=== PATIENT | male | born 1960 | race Caucasian/White ===

== ENCOUNTER 2025-06-23 13:32 | Inpatient (IN) | payer MEDICARE, SELFPAY ==
[2025-06-23] VITALS (29 sets, daily range): BP systolic 118–190; BP diastolic 48–99; PULSE 89–130; RESP 17–33; TEMP 36.7–38.4; O2SAT 93–98; BMI 31.3; BMI 31.2
--- NOTE | 2025-06-23 14:07 | EKG12_ITS ---
Test Reason : CP/SOB Blood Pressure : */* mmHG Vent. Rate : 129 BPM Atrial Rate : 129 BPM P-R Int : 128 ms QRS Dur : 126 ms QT Int : 330 ms P-R-T Axes : 39 118 8 degrees QTcB Int : 483 ms Sinus tachycardia with Premature atrial complexes Possible Left atrial enlargement Right bundle branch block Left posterior fascicular block Bifascicular block Possible Inferior infarct , age undetermined Abnormal ECG Confirmed by MALI ESQUEDA, AISHWARYA ([id number]), rewrite editor GAGE GUILLEN ([id number]) on 06/26/2025 9:10:28 AM Referred By: ES/TB Confirmed By: AISHWARYA SAMSON MD
--- NOTE | 2025-06-23 14:07 | CT_ITS ---
PROCEDURE: CTA CHEST W/WO CONTRAST 06/23/2025 REASON FOR EXAM: DYSPNEA TECHNIQUE: Procedure Code: [id number] Modality: CT Procedure: CTA CHEST W/WO CONTRAST Multiplanar Sagittal and Coronal images were obtained. 3D post processing was performed CONTRAST: Isovue 370 VOLUME: 100 mL One or more dose reduction techniques were used (e.g., Automated exposure control, adjustment of the mA and/or kV according to patient size, use of iterative reconstruction technique). RADIATION DOSE SUMMARY: CTDlvol: 25 mGy DLP: 458 mGycm COMPARISON: None # of known CTs in the past 12 months: 0 # of known Cardiac Nuclear Medicine Studies in the past 12 months: 0 FINDINGS: Thoracic Aorta: No aneurysm, dissection or rupture. Heart: Heart is normal size. No pericardial effusion. Coronary artery atherosclerosis. Pulmonary Vessels: Timing and quality of the contrast bolus is diagnostic. No evidence of acute or chronic pulmonary embolus in the central, main, interlobar and proximal segmental pulmonary arteries. The distal segmental and subsegmental vessels are limited in lower lobes. Main pulmonary artery is enlarged at 36 mm. Hardware: None. Lymph nodes: None appear enlarged. Lungs and Airways: Images are primarily obtained in expiration. Respiratory motion artifact. No consolidation, mass or large nodule. Pleura: No pleural effusion or pneumothorax. Upper Abdomen: Hypertrophy of the left adrenal gland with a mass at the posterior limb measuring 2.2 x 2.9 cm. Partially imaged right adrenal glands show some dystrophic calcification possibly from prior hemorrhage. Bones: Degenerative changes of the thoracic spine. CT/CTA Chest W/WO Contrast IMPRESSION: 1. Enlargement of the main pulmonary artery. Consider pulmonary arterial hype rtension. No acute or chronic pulmonary embolus is seen. The distal segmental and subsegmental vessels are limited by respirat ory motion artifact. 2. No acute aortic abnormality 3. Coronary artery disease. 4. Enlargement of the adrenal glands with mass involving the left adrenal glan d. Adrenal adenoma is a consideration. On a nonemergent basis consider contrast-enhanced MRI for full characterization. Reading Location: [facility]
--- NOTE | 2025-06-23 14:09 | EDS_ITS ---
HPI History of Present Illness Chief Complaint: Chest Pain Informant: patient Onset/Context/Timing Onset: Today Activity at onset: gradual Timing: Continuous Quality: Positive for Tightness Location: Left Chest Worsened By: Nothing Relieved By: NTG Associated Symptoms: Positive for Dyspnea, Fever, Lightheadedness and Palpitations; Negative for Nausea, Vomiting, Diaphoresis, Cough or Acid Reflux Narrative Narrative: Patient presents with chest pain and shortness of breath that began today. Patient states pain feels more like a tightness. Patient states it is over his left chest. Patient states nothing makes it worse. Patient states he took 1 sublingual nitroglycerin which helped. Patient states EMS gave him 4 baby aspirin. Patient denies any nausea or vomiting. Patient admits to some shortness of breath. Patient admits to a fever. Patient states he feels lightheaded at times. Patient also states he feels like his heart is racing. CVD Risk Factors: Negative for Hypertension, Diabetes, Hypercholesterolemia, Family History 1' </=55 or Smoking PE Risk Factors: Positive for Cancer; Negative for Recent Travel/Surgery, Recent Immobilization, Prior DVT or PE or OCP + Smoking + >/=35 [facility] Medical History (Updated 06/23/25 @ 16:[address] Tomas Franco, DO) Prostate cancer Heart attack HTN (hypertension) COPD (chronic obstructive pulmonary disease) Home Medications ?Medication ?Instructions ?Recorded ?Last Taken ?Type abiraterone 500 mg tablet 1,000 mg PO DAILY 06/23/25 U nknown History amlodipine 10 mg tablet 10 mg PO DAILY 06/23/25 Unkn own History aspirin 81 mg tablet 81 mg PO DAILY 06/23/25 Unkn own History atorvastatin 80 mg tablet (Lipitor) 80 mg PO DAILY 03/12 Unknown History clopidogrel 75 mg tablet (Plavix) 75 mg PO DAILY 06/23 Unknown History empagliflozin 10 mg tablet 10 mg PO DAILY 06/23/25 Unk nown History (Jardiance) lisinopril 20 mg tablet 20 mg PO DAILY 06/23/25 Unkn own History metoprolol succinate 25 mg 25 mg PO DAILY 06/23/25 Unk nown History tablet,extended release 24 hr nitroglycerin 0.4 mg sublingual 0.4 mg sublingual Q5M PRN chest 06/23/25 Unknown History tablet (Nitrostat) pain oxybutynin chloride 5 mg 5 mg PO DAILY 06/23/25 Unkno wn History tablet,extended release 24 hr prednisone 5 mg tablet 5 mg PO QDAY 06/23/25 Unknow n History relugolix 120 mg tablet (Orgovyx) 120 mg PO DAILY 03/12 Unknown History tamsulosin 0.4 mg capsule 0.4 mg PO DAILY 06/23/25 Unk nown History Allergy/AdvReac Type Severity Reaction Status Date / Time No Known Drug Allergies Allergy no drug Verified 06/23/25 13:39 allergies Surgical History Hx of tonsillectomy Social History Smoking Status: Current every day smoker tobacco type: cigarettes ROS ROS ED Constitutional Constitutional ED: Reports fever(s); Denies chills Eyes Eyes: Denies blurry vision or change in vision ENT ENT ED: Denies rhinorrhea or sore throat Cardiovascular Cardiovascular: Reports chest pain and palpitations Respiratory/Chest Respiratory/Chest: Reports dyspnea; Denies cough Gastrointestinal Gastrointestinal: Denies nausea or vomiting Genitourinary Genitourinary ED: Denies dysuria or hematuria Musculoskeletal Musculoskeletal: Denies back pain or neck pain Integumentary Denies abscess or rash Neurologic Neurologic: Reports headache(s); Denies weakness Allergic/Immunologic Allergic/Immunologic ED: Denies mouth swelling or urticaria EXAM Physical Exam Const Vital Signs: 06/23/25 13:33 06/23/25 13:39 06/23/25 13:39 Temperature 101.2 F H 101.2 F H 101.2 F H Temperature Source Oral Oral Oral Pulse Rate 125 H 128 H 130 H Respiratory Rate 33 H 29 H 29 H Respiratory Effort Blood Pressure 190/91 H 190/91 H 190/91 H Blood Pressure Mean 124 124 124 Pulse Ox 94 94 94 Oxygen Delivery Method Room Air Room Air Room Air Oxygen Flow Rate (L/min) 06/23/25 13:55 06/23/25 14:15 06/23/25 14:52 Temperature 100.4 F H Temperature Source Oral Pulse Rate 113 H Respiratory Rate 27 H Respiratory Effort Short of Breath Blood Pressure 154/84 H Blood Pressure Mean 107 Pulse Ox 96 95 Oxygen Delivery Method Nasal Cannula Nasal Cannula Oxygen Flow Rate (L/min) 2 2 06/23/25 14:52 06/23/25 15:00 06/23/25 16:04 Temperature 100.4 F H 100.4 F H 98.6 F Temperature Source Oral Oral Temporal Pulse Rate 115 H 114 H 101 H Respiratory Rate 26 H 23 H 24 H Respiratory Effort Blood Pressure 154/85 H 137/82 H 133/99 H Blood Pressure Mean 108 100 110 Pulse Ox 95 96 95 Oxygen Delivery Method Nasal Cannula Nasal Cannula Nasal Cannula Oxygen Flow Rate (L/min) 2 2 06/23/25 16:05 06/23/25 17:04 06/23/25 17:04 Temperature 98.6 F 98.0 F 98.0 F Temperature Source Temporal Oral Oral Pulse Rate 101 H 97 97 Respiratory Rate 24 H 23 H 23 H Respiratory Effort Blood Pressure 133/99 H 138/97 H 138/97 H Blood Pressure Mean 110 110 110 Pulse Ox 95 96 96 Oxygen Delivery Method Nasal Cannula Nasal Cannula Nasal Cannula Oxygen Flow Rate (L/min) 2 2 2 06/23/25 17:07 06/23/25 17:13 Temperature 98.0 F 98.6 F Temperature Source Oral Pulse Rate 97 Respiratory Rate 23 H Respiratory Effort Blood Pressure 138/97 H Blood Pressure Mean 110 Pulse Ox 96 Oxygen Delivery Method Oxygen Flow Rate (L/min) Positive well nourished and well developed General Appearance ED: well developed and NAD HEENT Reports moist mucous membranes Neck supple and no JVD Resp normal respiratory effort Auscultation: diminished lung sounds Cardio regular rhythm Rate: tachycardic GI soft to palpation, non-tender and non-distended Neuro oriented x3, CN's II-XII intact bilaterally and no sensory deficits noted Sensorium / Orientation: awake and alert Motor Exam: strength 5/5 throughout Psych mental status grossly normal Skin no rashes or lesions noted MDM MDM MDM Narrative Medical decision making narrative: Differential diagnosis includes cardiac dysrhythmia, cardiac ischemia, pneumonia, bronchitis, pulmonary embolism, dehydration, sepsis, viral bronchitis, and electrolyte abnormality. CBC will be obtained to assess for leukocytosis and anemia. Basic metabolic profile will be obtained to assess for electrolyte abnormality and renal function. High-sensitivity troponin will be obtained to assess for cardiac ischemia. PT with INR and PTT will be obtained to assess for coagulopathy. Serum lactate will be obtained to assess for sepsis. COVID-19, influenza, and RSV PCR will be obtained to assess for viral illness. Blood cultures will be obtained to assess for sepsis. EKG will be obtained to assess for cardiac dysrhythmia and cardiac ischemia. CTA of the chest will be obtained to assess for pulmonary embolism and pneumonia. History & Record Review Additional record(s) reviewed:: No prior records Lab Data Attestation: I reviewed the patient's lab results. Lab results narrative: CBC was reviewed. There is a mild leukocytosis of 14.3. The remainder is within normal limits. Basic metabolic profile was reviewed. BUN was slightly elevated at 27 and creatinine was 1.71. PT with INR and PTT were reviewed and were within normal limits. Serum lactate was reviewed and was normal at 1.5. Initial high-sensitivity troponin was reviewed and was 19. 2-hour repeat high- sensitivity troponin was reviewed and was elevated at 27. Labs: Laboratory Results - last 24 hr 06/23/25 06/23/25 06/23/25 13:20 14:29 15:58 WBC 14.3 H RBC 4.60 Hgb 13.7 Hct 41.0 MCV 89.1 MCH 29.8 MCHC 33.4 RDW Std Deviation 48.2 H RDW Coeff of Brooke 14.7 H Plt Count 289 MPV 10.9 Immature Gran % (Auto) 0.300 Neut % (Auto) 90.8 H Lymph % (Auto) 5.[address] [facility] % (Auto) 2.9 Eos % (Auto) 0.6 Baso % (Auto) 0.4 Absolute Neuts (auto) 13.0 H Absolute Lymphs (auto) 0.72 L Nucleated RBC % 0 PT 12.8 INR 0.9 APTT 25.1 Sodium 139 Potassium 3.9 Chloride 105 Carbon Dioxide 19.7 L Anion Gap 14 BUN 27 H Creatinine 1.71 H Estim Creat Clear Calc 50.80 Est GFR (MDRD) Non-Af 44 L BUN/Creatinine Ratio 15.8 Glucose 99 Lactic Acid 1.5 Calcium 9.1 Troponin T High Sens 19 Troponin T Hi Sens 2 Hr 27 H Radiography CTA PE Study: No Evidence of PE and No Evidence of Dissection Diagnostic Testing: Clinical Impression(s) from Imaging Studies Chest CTA 06/23/25 14:07 IMPRESSION: 1. Enlargement of the main pulmonary artery. Consider pulmonary arterial hypertension. No acute or chronic pulmonary embolus is seen. The distal segmental and subsegmental vessels are limited by respiratory motion artifact. 2. No acute aortic abnormality 3. Coronary artery disease. 4. Enlargement of the adrenal glands with mass involving the left adrenal gland. Adrenal adenoma is a consideration. On a nonemergent basis consider contrast-enhanced MRI for full characterization. Reading Location: [facility] CTA of the chest was obtained. There is no evidence of pulmonary embolism. There is enlargement of the main pulmonary artery. There is no aortic dissection noted. There is no consolidation noted. This was interpreted by the radiologist and was also independently reviewed by myself. EKG Initial EKG: Attestation: I personally reviewed and interpreted this EKG as follows: Interpretation: Sinus Tachycardia, LBBB and Non-Specific ST Changes Comments: EKG was obtained. On my independent interpretation, it shows sinus tachycardia with PACs with a rate of 129. LA interval was normal at 128 ms. QRS interval was slightly prolonged at 120 seconds. QTc interval was normal at 483 ms. There is some right axis deviation at 118. There are nonspecific ST-T wave changes noted. There are no prior EKGs available for comparison. Prior EKG tracings: not available for review Prior: No Prior Management Discussion w/another healthcare provider: Hospitalist Treatment and Re-Evaluation :: Patient was given aspirin by EMS. Patient had no further chest pain here in the emergency department. Given the patient's fever, cough, and leukocytosis, the patient was given a dose of Rocephin and Zithromax. Patient was advised of his findings. Since his delta troponin is 8, I recommended admission to the hospital. Patient is agreeable with this. Case was discussed with the hospitalist. She will admit the patient to our service. Patient understood and was agreeable with the plan. All questions were answered. Discharge Plan Dx/Rx/DC Orders Clinical Impression: Chest pain, Hypertension, COPD (chronic obstructive pulmonary disease) Disposition Disposition: Acute Care Hospital [facility]
[2025-06-23 14:35] LABS: Prothrombin Time (Protime)PT. 12.8 SECONDS (11.7-14.9)
[2025-06-23 14:36] LABS: Partial Thromboplast Time 25.1 Seconds (24.1-36.2)
[2025-06-23 14:54] LABS: Hematocrit 41.0 % (40-54); Hemoglobin 13.7 g/dL (13.0-16.5); Immature Granulocytes Count 0.050 X10^3/uL (0.0-0.0); Mean Corp Hgb Conc 33.4 g/dL (32-36); Mean Corpuscular Volume 89.1 fL (80-94); Mean Platelet Vol. 10.9 fl (6.2-12.0); NRBC Flagged by Analyzer 0 % (0-5); Platelet Count 289 K/mm3 (150-450); RBC Distribution Width CV 14.7 % (11.6-14.6); RBC Distribution Width SD 48.2 fl (35.1-43.9); Red Blood Count 4.60 M/mm3 (4.6-6.2); White Blood Count 14.3 K/mm3 (4.4-11.0)
[2025-06-23 15:05] LABS: Anion Gap 14 (5-15); BUN 27 mg/dL (4-19); BUN/Creat Ratio 15.8 RATIO (10-20); Calcium,Total 9.1 mg/dL (7.6-11.0); Carbon Dioxide 19.7 mmol/L (21.0-32.0); Chloride 105 mmol/L (98-108); Estimated Creatinine Clearance 50.80 ml/min (50-250); Glucose 99 mg/dL (70-99); Potassium 3.9 mmol/L (3.3-5.1); Troponin T High Sensitivity 19 ng/L (<=22)
[2025-06-23 16:31] LABS: Troponin T High Sens 2 HR 27 ng/L (<=22)
[2025-06-23] MEDS: Ceftriaxone 2 GM in 0.9% Normal Saline (50mL MB+) 50 ML IV (17:13)
[2025-06-23] MEDS: Azithromycin 500 MG in 0.9% Normal Saline (250mL Bag) 250 ML 255 MG IV (17:17)
--- NOTE | 2025-06-23 18:05 | PCM.HP.STD ---
HPI - General General Date of Admission: 06/23/25 Date of Service: 06/23/25 Chief Complaint: Chest pain, shortness of breath HPI Narrative ADRIA YOUSSEF, is a 65-year-old male history of CAD, BPH, prostate cancer, hypertension presented to [facility] ED 06/23/2025 due to chest pain and shortness of breath. Patient took a nitro which relieved the chest pain and he was given 325 mg of aspirin by EMS, on arrival only complaining of shortness of breath with improvement of chest pain. Reported fever and lightheadedness at home, at times also feels like his heart is racing. In the ED initial blood pressure 190/91, heart rate of 130 with respiratory rate of 29, temp 101.2 and O2 sat 94% on room air. CBC with white count of 14.3, hemoglobin 13.7. BMP with bicarb of 19.7, BUN 27 creatinine 1.71 with unclear baseline, lactic acid 1.5, troponin 19 with a repeat of 27. COVID/flu/RSV negative. Patient had CTA in the ED which showed enlargement of main pulmonary artery consider PAH but no PE seen, coronary artery disease, possible adrenal adenoma. Given patient's first Trope was 19 with a repeat of 27 and his symptoms hospitalist contacted for admission. Patient evaluated at bedside. Reports he had the substernal pressure earlier today and it lasted about 45 minutes and then he took nitroglycerin which relieved the pain, notes he has been somewhat short of breath over the past 1 week and has had a cough, occasionally productive of sputum, additionally endorses she has had some headache and nasal congestion. At the time of evaluation breathing is better and chest pain is not returned. Does note he had a heart attack about a year and a half ago and will eventually need intervention but given his multiple medical comorbidities they are optimizing him prior to doing any cardiac intervention so he does have known disease, patient and family unsure further details about this. Patient follows with for his care. Patient was febrile on arrival and says he is unsure how long that has been going on, he does not know if he was febrile at home. Endorses some ankle swelling at times if he is up moving around but it goes away if he elevates extremities at rest, this is not a certainly different. [facility] Medical History (Updated 06/23/25 @ 16:[address] Tomas Franco, DO) COPD (chronic obstructive pulmonary disease) Heart attack HTN (hypertension) Prostate cancer Home Medications ?Medication ?Instructions ?Recorded ?Last Taken ?Type abiraterone 500 mg tablet 1,000 mg PO DAILY 06/23/25 Unknown History amlodipine 10 mg tablet 10 mg PO DAILY 06/23/25 Unknown History aspirin 81 mg tablet 81 mg PO DAILY 06/23/25 Unknown History atorvastatin 80 mg tablet (Lipitor) 80 mg PO DAILY 06/23/25 Unknown History clopidogrel 75 mg tablet (Plavix) 75 mg PO DAILY 06/23/25 Unknown History empagliflozin 10 mg tablet 10 mg PO DAILY 06/23/25 Unknown History (Jardiance) lisinopril 20 mg tablet 20 mg PO DAILY 06/23/25 Unknown History metoprolol succinate 25 mg 25 mg PO DAILY 06/23/25 Unknown History tablet,extended release 24 hr nitroglycerin 0.4 mg sublingual 0.4 mg sublingual Q5M PRN chest 06/23/25 Unknown History tablet (Nitrostat) pain oxybutynin chloride 5 mg 5 mg PO DAILY 06/23/25 Unknown History tablet,extended release 24 hr prednisone 5 mg tablet 5 mg PO QDAY 06/23/25 Unknown History relugolix 120 mg tablet (Orgovyx) 120 mg PO DAILY 06/23/25 Unknown History tamsulosin 0.4 mg capsule 0.4 mg PO DAILY 06/23/25 Unknown History Allergy/AdvReac Type Severity Reaction Status Date / Time No Known Drug Allergies Allergy no drug Verified 06/23/25 13:39 allergies Surgical History Hx of tonsillectomy Social History Smoking Status: Current every day smoker tobacco type: cigarettes ROS ROS Narrative General: Had a fever in the ED HENT: Has a headache and nasal congestion, denies sore throat EYES: Denies changes in vision Resp: Has had a cough over the past week or so occasionally with sputum but occasionally dry, also increased shortness of breath around the same time Cardiac: Chest pain is resolved GI: Denies abdominal pain, denies changes in bowel, denies nausea/vomiting : Denies changes in urination Extremity: Occasionally gets some ankle swelling but nothing new MSK: Denies weakness Neuro: Denies any numbness/tingling Heme: Denies any bleeding or bruising Skin: Denies rashes Psychiatric: No complaints voiced Vital Signs Vital Signs Vital Signs: 06/23/25 13:33 06/23/25 13:39 06/23/25 13:39 Temperature 101.2 F H 101.2 F H 101.2 F H Temperature Source Oral Oral Oral Pulse Rate 125 H 128 H 130 H Respiratory Rate 33 H 29 H 29 H Respiratory Effort Blood Pressure 190/91 H 190/91 H 190/91 H Blood Pressure Mean 124 124 124 Pulse Ox 94 94 94 Oxygen Delivery Method Room Air Room Air Room Air Oxygen Flow Rate (L/min) 06/23/25 13:55 06/23/25 14:15 06/23/25 14:52 Temperature 100.4 F H Temperature Source Oral Pulse Rate 113 H Respiratory Rate 27 H Respiratory Effort Short of Breath Blood Pressure 154/84 H Blood Pressure Mean 107 Pulse Ox 96 95 Oxygen Delivery Method Nasal Cannula Nasal Cannula Oxygen Flow Rate (L/min) 2 2 06/23/25 14:52 06/23/25 15:00 06/23/25 15:15 Temperature 100.4 F H 100.4 F H Temperature Source Oral Oral Pulse Rate 115 H 114 H Respiratory Rate 26 H 23 H Respiratory Effort Blood Pressure 154/85 H 137/82 H 137/82 H Blood Pressure Mean 108 100 94 Pulse Ox 95 96 Oxygen Delivery Method Nasal Cannula Nasal Cannula Oxygen Flow Rate (L/min) 2 06/23/25 15:18 06/23/25 15:30 06/23/25 15:45 Temperature Temperature Source Pulse Rate 118 H 109 H 106 H Respiratory Rate 20 H 30 H 27 H Respiratory Effort Blood Pressure 155/73 H 128/56 H Blood Pressure Mean 97 77 Pulse Ox 95 95 93 Oxygen Delivery Method Oxygen Flow Rate (L/min) 06/23/25 16:00 06/23/25 16:04 06/23/25 16:05 Temperature 98.6 F 98.6 F Temperature Source Temporal Temporal Pulse Rate 102 H 101 H 101 H Respiratory Rate 20 H 24 H 24 H Respiratory Effort Blood Pressure 134/69 H 133/99 H 133/99 H Blood Pressure Mean 88 110 110 Pulse Ox 94 95 95 Oxygen Delivery Method Nasal Cannula Nasal Cannula Oxygen Flow Rate (L/min) 2 2 06/23/25 16:15 06/23/25 16:30 06/23/25 16:45 Temperature Temperature Source Pulse Rate 105 H 103 H Respiratory Rate 31 H 30 H Respiratory Effort Blood Pressure 144/48 H 150/77 H 122/63 H Blood Pressure Mean 75 98 81 Pulse Ox 96 96 96 Oxygen Delivery Method Oxygen Flow Rate (L/min) 06/23/25 17:00 06/23/25 17:04 06/23/25 17:04 Temperature 98.0 F 98.0 F Temperature Source Oral Oral Pulse Rate 97 97 Respiratory Rate 23 H 23 H Respiratory Effort Blood Pressure 138/97 H 138/97 H 138/97 H Blood Pressure Mean 111 110 110 Pulse Ox 96 96 96 Oxygen Delivery Method Nasal Cannula Nasal Cannula Oxygen Flow Rate (L/min) 2 2 06/23/25 17:07 06/23/25 17:13 06/23/25 17:15 Temperature 98.0 F 98.6 F Temperature Source Oral Pulse Rate 97 91 Respiratory Rate 23 H 18 Respiratory Effort Blood Pressure 138/97 H 122/79 H Blood Pressure Mean 110 91 Pulse Ox 96 96 Oxygen Delivery Method Oxygen Flow Rate (L/min) 06/23/25 17:30 06/23/25 17:45 06/23/25 18:00 Temperature 98.6 F Temperature Source Oral Pulse Rate 90 91 93 Respiratory Rate 25 H 21 H 21 H Respiratory Effort Blood Pressure 128/79 H 118/60 142/71 H Blood Pressure Mean 92 77 92 Pulse Ox 96 96 98 Oxygen Delivery Method Oxygen Flow Rate (L/min) 06/23/25 18:03 Temperature 98.6 F Temperature Source Oral Pulse Rate 91 Respiratory Rate 20 H Respiratory Effort Blood Pressure 142/71 H Blood Pressure Mean 94 Pulse Ox 97 Oxygen Delivery Method Nasal Cannula Oxygen Flow Rate (L/min) 2 Weight Weight: 99 kg Body Mass Index (BMI) 31.3 Physical Exam Narrative General: Alert, oriented, no apparent distress HEENT: Atraumatic, normocephalic Eyes: Anicteric, normal conjunctiva, extraocular movements grossly intact Neck: Supple Respiratory: Somewhat diminished bilaterally without wheezes rhonchi, normal respiratory effort Cardiovascular: Regular rate and rhythm GI: Soft, nontender Extremities: No significant pitting edema Musculoskeletal: Moving all extremities Neuro: No overt focal neurological deficits Skin: No rashes appreciated Psych: Cooperative Results Lab / Micro Data 06/23/25 13:20 06/23/25 13:20 Labs: Laboratory Results - last 24 hr 06/23/25 13:20: WBC 14.3 H, RBC 4.60, Hgb 13.7, Hct 41.0, MCV 89.1, MCH 29.8, MCHC 33.4, RDW Std Deviation 48.2 H, RDW Coeff of Brooke 14.7 H, Plt Count 289, MPV 10.9, Immature Gran % (Auto) 0.300, Neut % (Auto) 90.8 H, Lymph % (Auto) 5.0 L, [place] % (Auto) 2.9, Eos % (Auto) 0.6, Baso % (Auto) 0.4, Absolute Neuts (auto) 13.0 H, Absolute Lymphs (auto) 0.72 L, Nucleated RBC % 0, PT 12.8, INR 0.9, APTT 25.1, Sodium 139, Potassium 3.9, Chloride 105, Carbon Dioxide 19.7 L, Anion Gap 14, BUN 27 H, Creatinine 1.71 H, Estim Creat Clear Calc 50.80, Est GFR (MDRD) Non-Af 44 L, BUN/Creatinine Ratio 15.8, Glucose 99, Calcium 9.1, Troponin T High Sens 19 06/23/25 14:29: Lactic Acid 1.5 06/23/25 15:58: Troponin T Hi Sens 2 Hr 27 H, TSH 1.300 Micro: Microbiology 06/23/25 14:22 Mucosa - Nose SARS-CoV-2, Influenza & RSV (PCR) - Final Imaging Radiology Impression Chest CTA 06/23/25 14:07 IMPRESSION: 1. Enlargement of the main pulmonary artery. Consider pulmonary arterial hypertension. No acute or chronic pulmonary embolus is seen. The distal segmental and subsegmental vessels are limited by respiratory motion artifact. 2. No acute aortic abnormality 3. Coronary artery disease. 4. Enlargement of the adrenal glands with mass involving the left adrenal gland. Adrenal adenoma is a consideration. On a nonemergent basis consider contrast-enhanced MRI for full characterization. Reading Location: [id number] Assessment & Plan Assessment/Plan (1) Chest pain: PLAN: Plan # Chest pain -Patient's initial troponin 19 with repeat of 27, did have chest pain earlier today that resolved with nitro -On arrival patient was tachycardic, tachypneic and febrile as well as hypertensive -Does have known underlying disease with no history of intervention -Discussed with cardiac catheterization technician on-call given the above, it is suspected that this is demand ischemia from patient's hypertension and tachycardia on presentation but will obtain fourth troponin -If fourth troponin significantly elevated or if symptoms recur cardiology can see in consultation -Will check echocardiogram -Will admit and monitor on telemetry -Continue metoprolol, aspirin, Plavix, statin -TSH within normal limits #Fever - Unclear source but patient with white count of 14.3, temp of 101.2, tachycardic with heart rate in 120s and tachypneic with respiratory rate 33 - Tachycardia and tachypnea improved once patient was in the ED and received a dose of acetaminophen and fever resolved -Patient had blood cultures sent in the ED -COVID/flu/RSV negative -Will check respiratory panel -Will check UA -CT of the chest with no pneumonia -No abdominal complaints or indication for abdominal CT at this time -Suspect that this is more viral URI in nature given headache, stuffy nose, cough and shortness of breath but will do the above for better evaluation -Gentle IV fluids - Continue antibiotics while awaiting further information as above #Hx CAD -w/ no hx of intervention -management as above # Elevated creatinine -BUN 27 with a creatinine 1.71 -Unclear baseline but patient does only have 1 kidney -Patient received fluids as above -Avoid nephrotoxic agents # History of coronary artery disease -Patient listed as history of having a heart attack -Continue aspirin, Plavix, statin -Continue metoprolol #Chronic BPH with obstruction -Continue home medications # History of kidney cancer -Patient does have 1 kidney due to removal of the other from cancer around 20 to 25 years ago #Prostate cancer - Patient on abiraterone, prednisone, and Relugolix - Patient supposed to start radiation in April -Outpatient follow-up #Hypertension - Patient is hypertensive in the ED, continue home antihypertensives #?Adrenal adenoma - CTA with enlargement of the adrenal glands with mass involving left adrenal, possible adrenal adenoma -May need further contrast-enhanced MRI on a nonemergent basis #COPD -alb PRN -I/S #Tobacco use -Advise cessation -Nicotine replacement available if desired #DVT ppx: Insert SCDs Felicia Michael MD Charges/Coding Multi Select Codes Visit Charges Visit Charges: 09746 Init Hosp L2
[2025-06-23 18:23] LABS: Troponin T High Sens 4 HR 25 ng/L (<=22)
--- NOTE | 2025-06-23 19:50 | ECHOD_ITS ---
Reason For Study Reason For Study: CHEST PAIN Procedure This was a 2D Doppler, Color Flow transthoracic echocardiogram. Exam performed portable in patient room. Left Ventricle Normal LV size. The estimated ejection fraction is 55 %. No evidence for diastolic dysfunction. No regional wall motion abnormalities noted. Right Ventricle Normal RV size. Normal systolic function. Atria The left and right atria are normal. No doppler evidence for ASD. Mitral Valve There is mild mitral annular calcification. There is no mitral valve stenosis. No mitral valve insufficiency. Tricuspid Valve There is no tricuspid stenosis. Trivial tricuspid valve insufficiency. Unable to estimate RV systolic pressure due to insufficient tricuspid regurgitant envelope. Aortic Valve Trisinus/trileaflet aortic valve. There is no aortic stenosis. No aortic valve insufficiency. Pulmonic Valve There is no pulmonic valvular stenosis. No pulmonic valve insufficiency. Great Vessels Normal sized aortic root. Pericardium/Pleural No pericardial effusion. MMode/2D Measurements & Calculations LVIDd: 5.4 cm IVSd: 1.2 cm Ao root diam: 3.3 cm LVIDs: 3.6 cm LVPWd: 1.0 cm RVDd: 3.4 cm FS: 33.8 % asc Aorta Diam: 3.6 cm LAV(MOD-bp): 74.1 ml LVAd ap4: 31.5 cm2 LAV(MOD-bp) Indexed: 34.2 ml/m2 LVLd ap4: 7.9 cm LAV(MOD-sp2): 77.0 ml EDV(MOD-sp4): 107.9 ml LAV(MOD-sp4): 58.7 ml EDV(sp4-el): 106.9 ml LVAs ap4: 14.8 cm2 LVLs ap4: 6.5 cm ESV(MOD-sp4): 33.5 ml ESV(sp4-el): 28.5 ml EF(MOD-sp4): 68.9 % EF(sp4-el): 73.4 % LVAd ap2: 33.6 cm2 SV(MOD-sp4): 74.4 ml SV(MOD-sp2): 66.6 ml LVLd ap2: 8.9 cm SI(MOD-sp4): 34.3 ml/m2 SI(MOD-sp2): 30.8 ml/m2 EDV(MOD-sp2): 106.2 ml EDV(sp2-el): 107.9 ml LVAs ap2: 17.9 cm2 LVLs ap2: 8.0 cm ESV(MOD-sp2): 39.5 ml ESV(sp2-el): 34.3 ml EF(MOD-sp2): 62.8 % SV(sp4-el): 78.5 ml LA dimension(2D): 4.7 cm LA A4 area: 19.5 cm2 RA A4 area: 21.1 cm2 TAPSE: 2.2 cm Time Measurements MV dec time: 0.19 sec Doppler Measurements & Calculations MV E max selvin: 93.9 cm/sec Lat Peak E' Selvin: 7.8 cm/sec MV V2 max: 134.1 cm/sec MV A max selvin: 98.2 cm/sec E/E' lat: 12.0 MV max P.2 mmHg MV E/A: 0.96 MV V2 mean: 78.4 cm/sec MV mean P.8 mmHg MV V2 VTI: 33.7 cm MV P1/2t max selvin: 113.9 cm/sec Ao V2 max: 185.8 cm/sec LV V1 max: 126.6 cm/sec MV P1/2t: 49.9 msec Ao max P.9 mmHg LV V1 max P.4 mmHg Ao V2 mean: 121.4 cm/sec LV V1 mean P.8 mmHg MV dec slope: 669.1 cm/sec2 Ao mean P.9 mmHg LV V1 mean: 76.5 cm/sec MVA(P1/2t): 4.4 cm2 Ao V2 VTI: 36.3 cm LV V1 VTI: 22.9 cm AV (velocity ratio): 0.63 MR max selvin: 9.9 cm/sec PA V2 max: 102.0 cm/sec TR max selvin: 210.3 cm/sec MR max P.04 mmHg TR max P.3 mmHg ECHO/Echo Complete Interpretation Summary The estimated ejection fraction is 55 %. No evidence for diastolic dysfunction. Ordering Physician: Felicia Michael Referring Physician: OTD Performed By: Adele Banegas RDCS, RVT
--- NOTE | 2025-06-23 19:50 | EKG12_ITS ---
Test Reason : CHF/CP ADMISSION Blood Pressure : */* mmHG Vent. Rate : 83 BPM Atrial Rate : 83 BPM P-R Int : 144 ms QRS Dur : 134 ms QT Int : 396 ms P-R-T Axes : 63 58 58 degrees QTcB Int : 465 ms Normal sinus rhythm Right bundle branch block Abnormal ECG When compared with ECG of 23-Jun-2025 13:34, MANUAL COMPARISON REQUIRED DATA IS UNCONFIRMED Confirmed by Adam Conde ([id number]), editorial project manager NAHEED ROMAN ([id number]) on 06/26/2025 10:08:01 AM Referred By: TONJA Confirmed By: Adam Conde
--- NOTE | 2025-06-23 21:10 | PCM.HOSP.N ---
Hospitalist Note Admission ECG, NSR w/RBB, HR 83. No c/o CP reported.
[2025-06-23] MEDS: 0.9% Normal Saline (1000mL) 1,000 ML 50 ML IV (22:09)
[2025-06-23 23:00] LABS: Mucous, Urine 0 SEEN /hpf (<or=2+); Red Blood Cells-Urine 0 SEEN /hpf (0-5); Squamous Epithelial Cells - UA 0 SEEN /hpf (0-5)
[2025-06-23 23:07] LABS: Color, Urine Straw (Yellow); Glucose, Dipstick 1000 mg/dl (Normal); Ketone-Dipstick Negative (Negative); Leukocyte Esterase-Dipstick Negative /ul (Negative); Nitrite-Dipstick Negative (Negative); Occult Blood-Urine 10 /ul (Negative); Protein-Dipstick 100 mg/dl (Negative); Specific Gravity, Urine 1.010 (1.002-1.030); Urine Bilirubin Dipstick Negative (Negative)
[2025-06-23] MEDS: CLARIFY ORDER NOTE (23:52)
[2025-06-24] VITALS (11 sets, daily range): BP systolic 135–173; BP diastolic 65–89; PULSE 80–108; RESP 16–28; TEMP 36.8–38.1; O2SAT 93–96; BMI 31.2
[2025-06-24 04:43] LABS: Hematocrit 37.3 % (40-54); Hemoglobin 12.2 g/dL (13.0-16.5); Immature Granulocytes Count 0.060 X10^3/uL (0.0-0.0); Mean Corp Hgb Conc 32.7 g/dL (32-36); Mean Corpuscular Volume 89.7 fL (80-94); Mean Platelet Vol. 10.5 fl (6.2-12.0); NRBC Flagged by Analyzer 0 % (0-5); Platelet Count 240 K/mm3 (150-450); RBC Distribution Width CV 15.0 % (11.6-14.6); RBC Distribution Width SD 49.1 fl (35.1-43.9); Red Blood Count 4.16 M/mm3 (4.6-6.2); White Blood Count 13.9 K/mm3 (4.4-11.0)
[2025-06-24 05:21] LABS: Anion Gap 13 (5-15); BUN 26 mg/dL (4-19); BUN/Creat Ratio 13.1 RATIO (10-20); Calcium,Total 8.4 mg/dL (7.6-11.0); Carbon Dioxide 18.8 mmol/L (21.0-32.0); Chloride 108 mmol/L (98-108); Estimated Creatinine Clearance 42.95 ml/min (50-250); Glucose 106 mg/dL (70-99); Potassium 3.3 mmol/L (3.3-5.1)
[2025-06-24] MEDS: Albuterol 2.5 MG/3 ML VIAL.NEB. INHALATION (07:39)
[2025-06-24] MEDS: Metoprolol(XL)Succ 25 MG Tablet PO ×2 (08:47→13:09)
[2025-06-24] MEDS: Azithromycin 500 MG in 0.9% Normal Saline (250mL Bag) 250 ML 255 MG IV (09:37)
--- NOTE | 2025-06-24 09:50 | PCM.PN.HOSP ---
Reason for Visit Chief Complaint: Chest pain, shortness of breath Objective Data Objective Data Vital Signs: Vital Signs Temp Pulse Resp BP Pulse Ox O2 Del Method O2 Flow Rate 99 F 108 H 18 173/89 H 94 Nasal Cannula 2 06/24/25 08:39 06/24/25 08:47 06/24/25 08:39 06/24/25 08:39 06/24/25 08:39 06/24/25 08:39 06/24/25 08:39 Oxygen Flow Rate (L/min) 2 Oxygen Delivery Method Nasal Cannula Weight: 211 lb 10.3 oz Body Mass Index (BMI) 31.2 Intake & Output: Intake and Output for Last 24 Hours 06/22/25 06/23/25 06/24/25 23:59 23:59 23:59 Intake Total 305 / 305 50 / 50 Output Total 1050 / 1050 Balance 305 / 305 -1000 / -1000 Lab / Micro Data 06/24/25 04:18 06/24/25 04:18 Labs: Laboratory Results - last 24 hr 06/23/25 13:20: WBC 14.3 H, RBC 4.60, Hgb 13.7, Hct 41.0, MCV 89.1, MCH 29.8, MCHC 33.4, RDW Std Deviation 48.2 H, RDW Coeff of Brooke 14.7 H, Plt Count 289, MPV 10.9, Immature Gran % (Auto) 0.300, Neut % (Auto) 90.8 H, Lymph % (Auto) 5.0 L, [place] % (Auto) 2.9, Eos % (Auto) 0.6, Baso % (Auto) 0.4, Absolute Neuts (auto) 13.0 H, Absolute Lymphs (auto) 0.72 L, Nucleated RBC % 0, PT 12.8, INR 0.9, APTT 25.1, Sodium 139, Potassium 3.9, Chloride 105, Carbon Dioxide 19.7 L, Anion Gap 14, BUN 27 H, Creatinine 1.71 H, Estim Creat Clear Calc 50.80, Est GFR (MDRD) Non-Af 44 L, BUN/Creatinine Ratio 15.8, Glucose 99, Calcium 9.1, Troponin T High Sens 19 06/23/25 14:29: Lactic Acid 1.5 06/23/25 15:58: Troponin T Hi Sens 2 Hr 27 H, TSH 1.300 06/23/25 17:54: Troponin T Hi Sens 4Hr 25 H 06/23/25 19:58: POC Glucose 112 H 06/23/25 21:20: Urine Color Straw, Urine Clarity Clear, Urine pH 6.0, Ur Specific [place] 1.010, Urine Protein 100 H, Urine Glucose (UA) 1000 H, Urine Ketones Negative, Urine Occult Blood 10 H, Urine Nitrite Negative, Urine Bilirubin Negative, Urine Urobilinogen Normal, Ur Leukocyte Esterase Negative, Urine RBC 0 SEEN, Urine WBC 0 SEEN, Ur Squamous Epith Cells 0 SEEN, Urine Bacteria 0 SEEN, Urine Mucus 0 SEEN 06/24/25 04:18: WBC 13.9 H, RBC 4.16 L, Hgb 12.2 L, Hct 37.3 L, MCV 89.7, MCH 29.3, MCHC 32.7, RDW Std Deviation 49.1 H, RDW Coeff of Brooke 15.0 H, Plt Count 240, MPV 10.5, Immature Gran % (Auto) 0.400, Neut % (Auto) 88.1 H, Lymph % (Auto) 4.7 L, [place] % (Auto) 6.0, Eos % (Auto) 0.6, Baso % (Auto) 0.2, Absolute Neuts (auto) 12.3 H, Absolute Lymphs (auto) 0.66 L, Nucleated RBC % 0, Sodium 140, Potassium 3.3, Chloride 108, Carbon Dioxide 18.8 L, Anion Gap 13, BUN 26 H, Creatinine 1.96 H, Estim Creat Clear Calc 42.95 L, Est GFR (MDRD) Non-Af 37 L, BUN/Creatinine Ratio 13.1, Glucose 106 H, Calcium 8.4, TSH 0.715 06/24/25 06:17: POC Glucose 101 Micro: Microbiology 06/23/25 20:55 Mucosa - Nasopharyngeal Respiratory Panel (PCR) - Final 06/23/25 14:22 Mucosa - Nose SARS-CoV-2, Influenza & RSV (PCR) - Final Radiography Diagnostic Testing: Radiology Impression Chest CTA 06/23/25 14:07 IMPRESSION: 1. Enlargement of the main pulmonary artery. Consider pulmonary arterial hypertension. No acute or chronic pulmonary embolus is seen. The distal segmental and subsegmental vessels are limited by respiratory motion artifact. 2. No acute aortic abnormality 3. Coronary artery disease. 4. Enlargement of the adrenal glands with mass involving the left adrenal gland. Adrenal adenoma is a consideration. On a nonemergent basis consider contrast-enhanced MRI for full characterization. Reading Location: [facility] Physical Exam Narrative Seen and examined. Patient admitted with left-sided chest pain, shortness of breath fever and URI symptoms. Left-sided chest pain lasted less than half an hour. History of chronic smoking a pack per day since teenage and is still smokes. Her daughter is main caregiver and patient submissive on answering questions I talked to the patient's daughter at length over the phone. Patient had nephrectomy and therefore on single kidney. Creatinine elevated. Patient also has prostate cancer. Had MRI about April 2024 with manage conservatively on medication. Follows radio control crane operator Dr. Covarrubias, [facility] Physical exam General: Alert, Oriented x3, Cooperative. BMI 31.3 kg/m? HEENT: Atraumatic, PERRLA, EOMI, Normocephalic. Oral: No Gingival or Mucosal Lesions/ Ulcerations Neck: Supple, No JVD, Negative Carotid Bruits Chest wall/Lungs: Air entry diminished in all lung cuevas. No appreciable crepitations or rhonchi Cardiovascular: Regular rate and rhythm, Normal S1,S2, No M/G/R Abdomen: Bowel Sounds Present, Soft, Non Tender, Non-Distended : No dysuria. No renal angle tenderness. No suprapubic tenderness. Extremities: No edema, Capillary Refill Less than 3 Seconds Skin: No rashes, No breakdown Musculoskeletal: No Tenderness to Palpation of Joints or Extremities. ROM restricted. Neurological: Cranial nerves II-XII grossly intact, DTR 2+/4. No acute focal neurological deficit. Psych/Mental Status: Flat Assessment & Plan Assessment/Plan (1) Chest pain: PLAN: Plan 65-year-old gentleman admitted with chest pain and shortness of breath on the day of admission. It is more like a tightness over left chest. Was given 4 baby aspirin by EMS.Patient chest pain lasted less than half an hour when he came to ED. Also fever, short of breath, cough with mild phlegm, could not tell exact nature characteristic of his sputum. 1. Atypical chest pain -Patient's initial troponin 19 with repeat of 27, did have chest pain earlier today that resolved with nitro -On arrival patient was tachycardic, tachypneic and febrile as well as hypertensive -Discussed with the radio control crane operator and consult appreciated. It seems chest pain may related to patient pneumonia. Troponin peak 25. HORTENCIA risk score 3. Automotive Painter Helper recommended no further intervention inpatient but patient can follow-up with his own radio control crane operator Dr. Covarrubias for noninvasive cardiac testing including stress test. Metoprolol dose increased to 50 mg daily. -Continue aspirin, Plavix, statin -TSH within normal limits Admission ECG: NSR with right bundle branch block. Heart rate 83/min. Currently on IV ceftriaxone and Zithromax. Triple PCR negative. Respiratory panel negative. 2. Fever most likely due to bilateral possible interstitial pneumonia suspicion of possible viral but may be bacterial: Patient has a history of smoking a pack per day since teenage. Did not had PFT in the past. - Unclear source but patient with white count of 14.3, temp of 101.2, tachycardic with heart rate in 120s and tachypneic with respiratory rate 33 - Tachycardia and tachypnea improved once patient was in the ED and received a dose of acetaminophen and fever resolved -Patient had blood cultures sent in the ED -COVID/flu/RSV negative Respiratory panel negative. -UA negative of LE and nitrite. WBC 0, bacteria 0 therefore unlikely UTI -CT of the chest individually reviewed and though does not show dense consolidation mass or large nodule but respiratory motion artifact with bilateral ground glass opacity. -No abdominal complaints or indication for abdominal CT at this time -Gentle IV fluids On IV ceftriaxone and azithromycin #Hx CAD -w/ no hx of intervention -management as above # Elevated creatinine -BUN 27 with a creatinine 1.71 -Unclear baseline but patient does only have 1 kidney -Patient received fluids as above -Avoid nephrotoxic agents 06/24: Creatinine increased from 1.71-1.96. Hold lisinopril. Patient has single kidney, had nephrectomy because of kidney cancer. # History of coronary artery disease -Patient listed as history of having a heart attack -Continue aspirin, Plavix, statin -Continue metoprolol #Chronic BPH with obstruction -Continue home medications # History of kidney cancer -Patient does have 1 kidney due to removal of the other from cancer around 20 to 25 years ago #Prostate cancer - Patient on abiraterone, prednisone, and Relugolix - Patient supposed to start radiation in April -Outpatient follow-up #Hypertension - Patient is hypertensive in the ED, continue home antihypertensives #? Adrenal adenoma - CTA with enlargement of the adrenal glands with mass involving left adrenal, possible adrenal adenoma -May need further contrast-enhanced MRI on a nonemergent basis #COPD -alb PRN -I/S #Tobacco use -Advise cessation -Nicotine replacement available if desired #DVT ppx: B/L SCDs Microbiology Past 72 Hours 06/23/25 20:55 Mucosa - Nasopharyngeal Respiratory Panel (PCR) - Final 06/23/25 14:22 Mucosa - Nose SARS-CoV-2, Influenza & RSV (PCR) - Final Laboratory Results 06/23/25 13:20: WBC 14.3 H, RBC 4.60, Hgb 13.7, Hct 41.0, MCV 89.1, MCH 29.8, MCHC 33.4, RDW Std Deviation 48.2 H, RDW Coeff of Brooke 14.7 H, Plt Count 289, MPV 10.9, Immature Gran % (Auto) 0.300, Neut % (Auto) 90.8 H, Lymph % (Auto) 5.0 L, [place] % (Auto) 2.9, Eos % (Auto) 0.6, Baso % (Auto) 0.4, Absolute Neuts (auto) 13.0 H, Absolute Lymphs (auto) 0.72 L, Nucleated RBC % 0, PT 12.8, INR 0.9, APTT 25.1, Sodium 139, Potassium 3.9, Chloride 105, Carbon Dioxide 19.7 L, Anion Gap 14, BUN 27 H, Creatinine 1.71 H, Estim Creat Clear Calc 50.80, Est GFR (MDRD) Non-Af 44 L, BUN/Creatinine Ratio 15.8, Glucose 99, Calcium 9.1, Troponin T High Sens 19 06/23/25 14:29: Lactic Acid 1.5 06/23/25 15:58: Troponin T Hi Sens 2 Hr 27 H, TSH 1.300 06/23/25 17:54: Troponin T Hi Sens 4Hr 25 H 06/23/25 19:58: POC Glucose 112 H 06/23/25 21:20: Urine Color Straw, Urine Clarity Clear, Urine pH 6.0, Ur Specific [place] 1.010, Urine Protein 100 H, Urine Glucose (UA) 1000 H, Urine Ketones Negative, Urine Occult Blood 10 H, Urine Nitrite Negative, Urine Bilirubin Negative, Urine Urobilinogen Normal, Ur Leukocyte Esterase Negative, Urine RBC 0 SEEN, Urine WBC 0 SEEN, Ur Squamous Epith Cells 0 SEEN, Urine Bacteria 0 SEEN, Urine Mucus 0 SEEN 06/24/25 04:18: WBC 13.9 H, RBC 4.16 L, Hgb 12.2 L, Hct 37.3 L, MCV 89.7, MCH 29.3, MCHC 32.7, RDW Std Deviation 49.1 H, RDW Coeff of Brooke 15.0 H, Plt Count 240, MPV 10.5, Immature Gran % (Auto) 0.400, Neut % (Auto) 88.1 H, Lymph % (Auto) 4.7 L, [place] % (Auto) 6.0, Eos % (Auto) 0.6, Baso % (Auto) 0.2, Absolute Neuts (auto) 12.3 H, Absolute Lymphs (auto) 0.66 L, Nucleated RBC % 0, Sodium 140, Potassium 3.3, Chloride 108, Carbon Dioxide 18.8 L, Anion Gap 13, BUN 26 H, Creatinine 1.96 H, Estim Creat Clear Calc 42.95 L, Est GFR (MDRD) Non-Af 37 L, BUN/Creatinine Ratio 13.1, Glucose 106 H, Calcium 8.4, TSH 0.715 06/24/25 06:17: POC Glucose 101 06/24/25 11:51: POC Glucose 146 H Clinical Impression(s) from Imaging Studies Chest CTA 06/23/25 14:07 IMPRESSION: 1. Enlargement of the main pulmonary artery. Consider pulmonary arterial hypertension. No acute or chronic pulmonary embolus is seen. The distal segmental and subsegmental vessels are limited by respiratory motion artifact. 2. No acute aortic abnormality 3. Coronary artery disease. 4. Enlargement of the adrenal glands with mass involving the left adrenal gland. Adrenal adenoma is a consideration. On a nonemergent basis consider contrast-enhanced MRI for full characterization. Reading Location: [id number] Charges/Coding Addendum Addendum: Total time of the visit including total time spent in counseling or coordination of care, (more than 50% of the total time, spent in obtaining medical information from nurses and other ancillary care providers ,explaining to the patient about labs, imaging, diagnosis and management of active complex medical conditions), management of fever, and possible pneumonia, demand ischemia, cardiology consult discussion and clinical update given to patient's daughter, review of labs and imaging is 35 minutes. Visit Charges Inpatient E&M: 66581 Subs Hosp L3 HORTENCIA Risk Score for UA/STEMI Assesmment (YES = 1) Age > or = 65: Yes > or = 3 CAD risk factors (HTN, Hypercholesterolemia, Diabetes, family hx, current smoker): No Known CAD (Stenosis > or = 50%): No ASA used in past 7 days: Yes Severe angina (> or = 2 episodes in 24 hrs): No EKG ST change > or = 0.5mm: No Positive cardiac markers: Yes Score HORTENCIA Risk Score of mortality/ recurrent ischemic event over the next 14 days: 3 = 13.2% Intermediate Risk
--- NOTE | 2025-06-24 12:12 | PCM.CONS.C ---
Assessment & Plan Assessment/Plan (1) Chest pain: QUALIFIERS: Chest pain type: unspecified Qualified Code(s): R07.9 - Chest pain, unspecified PLAN: This could be related to patient's infection/pneumonia and resulting demand supply mismatch in the setting of known coronary artery disease. His troponin was not significantly elevated. We can increase his beta-richard to 50 mg daily (metoprolol succinate). If required we can go up further on this as well and if blood pressure does not permit the increase then we can decrease the amlodipine. He does not need any further workup from a cardiac standpoint at this time in the form of stress testing or coronary angiography. (2) Atrial tachycardia: PLAN: Patient had short runs of what appears to be atrial tachycardia on telemetry. Recommend increasing the metoprolol. HPI Consult Data Date of Consult: 06/24/25 HPI Narrative Reason for Consultation: Chest pain HPI Narrative: ADRIA YOUSSEF, is a 65 M who presents with chest pain. He has a complicated medical history and apparently has known significant CAD that is being treated medically at [facility]. Upon presentation he was also found to have fever, elevated white count. His troponin peak has been 25. No further chest pain since admission. He is being treated with antibiotics for possible pulmonary source of infection. [facility] Medical History (Updated 06/24/25 @ 12:[address] Yariel Engel MD) Prostate cancer Heart attack HTN (hypertension) COPD (chronic obstructive pulmonary disease) Home Medications ?Medication ?Instructions ?Recorded ?Last Taken ?Type abiraterone 500 mg tablet 1,000 mg PO DAILY 06/23/25 06/23/25 07:00 History 1,000 mg amlodipine 10 mg tablet 10 mg PO DAILY 06/23/25 06/23/25 07:05 History 10 mg aspirin 81 mg tablet 81 mg PO DAILY 06/23/25 06/23/25 07:00 History 81 mg atorvastatin 80 mg tablet (Lipitor) 80 mg PO DAILY 06/23/25 06/23/25 07:00 History 80 mg clopidogrel 75 mg tablet (Plavix) 75 mg PO DAILY 06/23/25 06/23/25 07:00 History 75 mg empagliflozin 10 mg tablet 10 mg PO DAILY 06/23/25 06/23/25 07:00 History (Jardiance) 10 mg lisinopril 20 mg tablet 20 mg PO DAILY 06/23/25 06/23/25 07:00 History 20 mg metoprolol succinate 25 mg 25 mg PO DAILY 06/23/25 06/23/25 07:00 History tablet,extended release 24 hr 25 mg nitroglycerin 0.4 mg sublingual 0.4 mg sublingual Q5M PRN chest 06/23/25 06/23/25 12:30 History tablet (Nitrostat) pain 0.4 mg oxybutynin chloride 5 mg 5 mg PO DAILY 06/23/25 06/23/25 07:00 History tablet,extended release 24 hr 5 mg prednisone 5 mg tablet 5 mg PO QDAY 06/23/25 06/23/25 07:00 History 5 mg relugolix 120 mg tablet (Orgovyx) 120 mg PO DAILY 06/23/25 06/23/25 07:00 History 120 mg tamsulosin 0.4 mg capsule 0.4 mg PO BID 06/23/25 06/23/25 07:00 History 0.4 mg Allergy/AdvReac Type Severity Reaction Status Date / Time No Known Drug Allergies Allergy no drug Verified 06/23/25 13:39 allergies Surgical History Hx of tonsillectomy Social History Smoking Status: Current every day smoker tobacco type: cigarettes Physical Exam Const alert HEENT normocephalic Eyes no scleral icterus Resp normal respiratory effort Cardio regular rate Charges/Coding Visit Charges Inpatient E&M: 63427 Init Hosp L2 Objective Data Vital Signs: Vital Signs Temp Pulse Resp BP Pulse Ox O2 Del Method O2 Flow Rate 99 F 108 H 18 173/89 H 94 Nasal Cannula 2 06/24/25 08:39 06/24/25 08:47 06/24/25 08:39 06/24/25 08:39 06/24/25 08:39 06/24/25 08:39 06/24/25 08:39 Oxygen Flow Rate (L/min) 2 Oxygen Delivery Method Nasal Cannula Weight: 211 lb 10.3 oz Body Mass Index (BMI) 31.2 Intake & Output: Intake and Output for Last 24 Hours 06/22/25 06/23/25 06/24/25 23:59 23:59 23:59 Intake Total 305 / 305 895 / 895 Output Total 1050 / 1050 Balance -155 / -155 Lab / Micro Data 06/24/25 04:18 06/24/25 04:18 Labs: Laboratory Results - last 24 hr 06/23/25 13:20: WBC 14.3 H, RBC 4.60, Hgb 13.7, Hct 41.0, MCV 89.1, MCH 29.8, MCHC 33.4, RDW Std Deviation 48.2 H, RDW Coeff of Brooke 14.7 H, Plt Count 289, MPV 10.9, Immature Gran % (Auto) 0.300, Neut % (Auto) 90.8 H, Lymph % (Auto) 5.0 L, [place] % (Auto) 2.9, Eos % (Auto) 0.6, Baso % (Auto) 0.4, Absolute Neuts (auto) 13.0 H, Absolute Lymphs (auto) 0.72 L, Nucleated RBC % 0, PT 12.8, INR 0.9, APTT 25.1, Sodium 139, Potassium 3.9, Chloride 105, Carbon Dioxide 19.7 L, Anion Gap 14, BUN 27 H, Creatinine 1.71 H, Estim Creat Clear Calc 50.80, Est GFR (MDRD) Non-Af 44 L, BUN/Creatinine Ratio 15.8, Glucose 99, Calcium 9.1, Troponin T High Sens 19 06/23/25 14:29: Lactic Acid 1.5 06/23/25 15:58: Troponin T Hi Sens 2 Hr 27 H, TSH 1.300 06/23/25 17:54: Troponin T Hi Sens 4Hr 25 H 06/23/25 19:58: POC Glucose 112 H 06/23/25 21:20: Urine Color Straw, Urine Clarity Clear, Urine pH 6.0, Ur Specific [place] 1.010, Urine Protein 100 H, Urine Glucose (UA) 1000 H, Urine Ketones Negative, Urine Occult Blood 10 H, Urine Nitrite Negative, Urine Bilirubin Negative, Urine Urobilinogen Normal, Ur Leukocyte Esterase Negative, Urine RBC 0 SEEN, Urine WBC 0 SEEN, Ur Squamous Epith Cells 0 SEEN, Urine Bacteria 0 SEEN, Urine Mucus 0 SEEN 06/24/25 04:18: WBC 13.9 H, RBC 4.16 L, Hgb 12.2 L, Hct 37.3 L, MCV 89.7, MCH 29.3, MCHC 32.7, RDW Std Deviation 49.1 H, RDW Coeff of Brooke 15.0 H, Plt Count 240, MPV 10.5, Immature Gran % (Auto) 0.400, Neut % (Auto) 88.1 H, Lymph % (Auto) 4.7 L, [place] % (Auto) 6.0, Eos % (Auto) 0.6, Baso % (Auto) 0.2, Absolute Neuts (auto) 12.3 H, Absolute Lymphs (auto) 0.66 L, Nucleated RBC % 0, Sodium 140, Potassium 3.3, Chloride 108, Carbon Dioxide 18.8 L, Anion Gap 13, BUN 26 H, Creatinine 1.96 H, Estim Creat Clear Calc 42.95 L, Est GFR (MDRD) Non-Af 37 L, BUN/Creatinine Ratio 13.1, Glucose 106 H, Calcium 8.4, TSH 0.715 06/24/25 06:17: POC Glucose 101 06/24/25 11:51: POC Glucose 146 H Micro: Microbiology 06/23/25 20:55 Mucosa - Nasopharyngeal Respiratory Panel (PCR) - Final 06/23/25 14:22 Mucosa - Nose SARS-CoV-2, Influenza & RSV (PCR) - Final Cardiology Labs/Tests 06/23/25 13:20: WBC 14.3 H, RBC 4.60, Hgb 13.7, Hct 41.0, MCV 89.1, MCH 29.8, MCHC 33.4, Plt Count 289, MPV 10.9, Immature Gran % (Auto) 0.300, Neut % (Auto) 90.8 H, Lymph % (Auto) 5.0 L, [place] % (Auto) 2.9, Eos % (Auto) 0.6, Baso % (Auto) 0.4, Absolute Neuts (auto) 13.0 H, Nucleated RBC % 0, PT 12.8, INR 0.9, APTT 25.1, Sodium 139, Potassium 3.9, Chloride 105, Carbon Dioxide 19.7 L, Anion Gap 14, BUN 27 H, Creatinine 1.71 H, Est GFR (MDRD) Non-Af 44 L, BUN/Creatinine Ratio 15.8, Glucose 99, Calcium 9.1 06/23/25 14:29: Lactic Acid 1.5 06/23/25 21:20: Urine Color Straw, Urine Clarity Clear, Urine pH 6.0, Ur Specific [place] 1.010, Urine Protein 100 H, Urine Glucose (UA) 1000 H, Urine Ketones Negative, Urine Occult Blood 10 H, Urine Nitrite Negative, Urine Bilirubin Negative, Urine Urobilinogen Normal, Ur Leukocyte Esterase Negative, Urine RBC 0 SEEN, Urine WBC 0 SEEN 06/24/25 04:18: WBC 13.9 H, RBC 4.16 L, Hgb 12.2 L, Hct 37.3 L, MCV 89.7, MCH 29.3, MCHC 32.7, Plt Count 240, MPV 10.5, Immature Gran % (Auto) 0.400, Neut % (Auto) 88.1 H, Lymph % (Auto) 4.7 L, [place] % (Auto) 6.0, Eos % (Auto) 0.6, Baso % (Auto) 0.2, Absolute Neuts (auto) 12.3 H, Nucleated RBC % 0, Sodium 140, Potassium 3.3, Chloride 108, Carbon Dioxide 18.8 L, Anion Gap 13, BUN 26 H, Creatinine 1.96 H, Est GFR (MDRD) Non-Af 37 L, BUN/Creatinine Ratio 13.1, Glucose 106 H, Calcium 8.4 Rhythm: EKG: ECHO: Stress Test: Cardiac Cath: PCI: CT Surgery: Holter monitor: EPS: PPM: CXR: Chest CT Scan: Radiography Diagnostic Testing: Radiology Impression Chest CTA 06/23/25 14:07 IMPRESSION: 1. Enlargement of the main pulmonary artery. Consider pulmonary arterial hypertension. No acute or chronic pulmonary embolus is seen. The distal segmental and subsegmental vessels are limited by respiratory motion artifact. 2. No acute aortic abnormality 3. Coronary artery disease. 4. Enlargement of the adrenal glands with mass involving the left adrenal gland. Adrenal adenoma is a consideration. On a nonemergent basis consider contrast-enhanced MRI for full characterization. Reading Location: [id number] HORTENCIA Risk Score for UA/STEMI Assesmment (YES = 1) Risk Stratification Applicable: No
[2025-06-24] MEDS: guaiFENesin/D-Methorphan TAB.SR.12H 2 TABLET PO ×2 (15:32→21:18)
--- NOTE | 2025-06-24 21:15 | NURSING ---
Pt daughter called at this time for update. Update given. Daughter requests physician calls her tomorrow.
[2025-06-25 03:07] VITALS: BMI 30.9
[2025-06-25 04:15] VITALS: BP 149/82; PULSE 72; RESP 18; TEMP 37; O2SAT 94
[2025-06-25 06:42] LABS: Hematocrit 37.4 % (40-54); Hemoglobin 12.2 g/dL (13.0-16.5); Immature Granulocytes Count 0.060 X10^3/uL (0.0-0.0); Mean Corp Hgb Conc 32.6 g/dL (32-36); Mean Corpuscular Volume 89.7 fL (80-94); Mean Platelet Vol. 10.9 fl (6.2-12.0); NRBC Flagged by Analyzer 0 % (0-5); Platelet Count 218 K/mm3 (150-450); RBC Distribution Width CV 14.9 % (11.6-14.6); RBC Distribution Width SD 49.4 fl (35.1-43.9); Red Blood Count 4.17 M/mm3 (4.6-6.2); White Blood Count 10.6 K/mm3 (4.4-11.0)
[2025-06-25 07:01] LABS: Anion Gap 10 (5-15); BUN 20 mg/dL (4-19); BUN/Creat Ratio 12.0 RATIO (10-20); Calcium,Total 8.7 mg/dL (7.6-11.0); Carbon Dioxide 21.2 mmol/L (21.0-32.0); Chloride 108 mmol/L (98-108); Estimated Creatinine Clearance 51.08 ml/min (50-250); Glucose 103 mg/dL (70-99); Potassium 3.5 mmol/L (3.3-5.1)
[2025-06-25 08:19] VITALS: BP 164/82; PULSE 82; RESP 17; TEMP 36.8; O2SAT 94
[2025-06-25 08:26] VITALS: PULSE 82
[2025-06-25] MEDS: Metoprolol(XL)Succ 50 MG Tablet PO (08:26)
[2025-06-25] MEDS: guaiFENesin/D-Methorphan TAB.SR.12H 2 TABLET PO (08:27)
[2025-06-25] MEDS: Senna/Docusate Sodium 1 Tablet 2 TABLET PO (08:27)
--- NOTE | 2025-06-25 10:19 | DCINST_ITS ---
Discharge Instructions DC O2, CPAP, BIPAP needs Home O2 Discharge instructions: No Dressing / Incision Discharge Activity: Return to Normal Activity Weight Bearing Status: Weight bearing as tolerated Dressing / Incision Call your doctor if you observe: Fever of 101 or Higher, Coldness, Increased Pain, Numbness or Tingling, Change in Color, Inability to urinate, Inability to have a bowel movement, Shortness of breath, Dizziness, Fainting spells, Swelling in the ankles, Chest pain, Prolonged hiccupping, Increased palpitations (irregular heartbeat) and Calf discomfort Follow Up Care When: IN 2 WEEKS Test Results: Test results from this visit will be discussed in further detail at your follow- up appointment, if applicable. Discharge Plan Admission Admit Date/Time: 06/24/25 13:50 Primary Reason for Your Visit: Atypical chest pain. Possible interstitial pneumonia Attending Provider: Noam Das Primary Care Provider: [facility] Consulting Providers: Felicia Michael; Maya Engel Instructions Additional Instructions / Restrictions: Follow-up on inside sales coordinator, Dr. Satish JONES?Tangela Advised to follow with extruder operator vertical, referred by PCP Discharge Orders/Prescriptions Prescriptions: New dextromethorphan-guaifenesin 60-1,200 mg tablet extended release 12 hr 1 tab PO BID 6 Days Qty: 12 0RF metoprolol succinate 50 mg Tablet Extended Release 24 Hr 50 mg PO DAILY 30 Days Qty: 30 2RF sennosides-docusate sodium [Stimulant Laxative Plus] 8.6-50 mg Tablet 2 tab PO BID PRN (Reason: CONSTIPATION) Qty: 0 0RF Rx Instructions: OTC [id number] cefdinir 300 mg capsule 300 mg PO BID 5 Days Qty: 10 0RF Continued Orgovyx 120 mg tablet 120 mg PO DAILY oxybutynin chloride 5 mg tablet extended release 24hr 5 mg PO DAILY abiraterone 500 mg tablet 1,000 mg PO DAILY Rx Instructions: must be taken on empty stomach, at least 1 hr before or 2 hrs after a meal/food prednisone 5 mg tablet 5 mg PO QDAY tamsulosin 0.4 mg capsule 0.4 mg PO BID nitroglycerin [Nitrostat] 0.4 mg tablet, sublingual 0.4 mg sublingual Q5M PRN (Reason: chest pain) Rx Instructions: do not exceed 3 doses per episode amlodipine 10 mg tablet 10 mg PO DAILY atorvastatin [Lipitor] 80 mg tablet 80 mg PO DAILY clopidogrel [Plavix] 75 mg tablet 75 mg PO DAILY Jardiance 10 mg tablet 10 mg PO DAILY lisinopril 20 mg tablet 20 mg PO DAILY aspirin 81 mg tablet 81 mg PO DAILY Discontinued metoprolol succinate 25 mg tablet extended release 24 hr 25 mg PO DAILY Referrals / Follow Up: [facility] [Other] [facility] [Other] Disposition Disposition (needs filled in before D/C Order can be placed): Home, Self Care
[2025-06-25] MEDS: Azithromycin 500 MG in 0.9% Normal Saline (250mL Bag) 250 ML 255 MG IV (11:09)
[2025-06-25 11:15] VITALS: O2SAT 94; O2SAT 95
--- NOTE | 2025-06-25 11:40 | PCM.DC.SUM ---
Providers Date of Admission: 06/24/25 Date of Discharge: 06/25/25 Primary Care Physician: LC BENTON Consultations 06/24/25 10:16 Consult: Cardiology Routine Consulting Provider: Maya Engel Reason for Consult: chest pain/SOB, CAD history EMERGENT Consult: No MD Notified: Yes Date Notified: 06/24/25 Time Notified: 10:16 Method of Notification: Verbal Reason For Visit: CHEST PAIN, FEVER Diagnosis Discharge Diagnosis (1) Chest pain: Status: Acute Code(s): R07.9 - Chest pain, unspecified Qualifiers: Chest pain type: unspecified Qualified Code(s): R07.9 - Chest pain, unspecified Plan 65-year-old gentleman admitted with chest pain and shortness of breath on the day of admission. It is more like a tightness over left chest. Was given 4 baby aspirin by EMS.Patient chest pain lasted less than half an hour when he came to ED. Also fever, short of breath, cough with mild phlegm, could not tell exact nature characteristic of his sputum. History of chronic smoking a pack per day since teenage and is still smokes. H 1. Atypical chest pain, noncardiac origin -Patient's initial troponin 19 with repeat of 27, did have chest pain earlier today that resolved with nitro -On arrival patient was tachycardic, tachypneic and febrile as well as hypertensive -Discussed with the agent contract clerk and consult appreciated. It seems chest pain may related to patient pneumonia. Troponin peak 25. HORTENCIA risk score 3. Windows Deployment Technician recommended no further intervention inpatient but patient can follow-up with his own agent contract clerk Dr. Covarrubias for noninvasive cardiac testing including stress test. Metoprolol dose increased to 50 mg daily. -Continue aspirin, Plavix, statin -TSH within normal limits Admission ECG: NSR with right bundle branch block. Heart rate 83/min. Currently on IV ceftriaxone and Zithromax. Triple PCR negative. Respiratory panel negative. 06/19: Patient is doing well. Shortness of breath and chest pain is resolved. Acute type I FL ruled out. Mild troponin is in due to increased cardiac demand probably from pulmonary origin. Discharged on metoprolol succinate 50 mg daily. 2. Fever most likely due to bilateral possible interstitial pneumonia suspicion of possible viral but may be bacterial: Patient has a history of smoking a pack per day since teenage. Did not had PFT in the past. - Unclear source but patient with white count of 14.3, temp of 101.2, tachycardic with heart rate in 120s and tachypneic with respiratory rate 33 - Tachycardia and tachypnea improved once patient was in the ED and received a dose of acetaminophen and fever resolved -Patient had blood cultures sent in the ED -COVID/flu/RSV negative Respiratory panel negative. -UA negative of LE and nitrite. WBC 0, bacteria 0 therefore unlikely UTI -CT of the chest individually reviewed and though does not show dense consolidation mass or large nodule but respiratory motion artifact with bilateral ground glass opacity. -No abdominal complaints or indication for abdominal CT at this time -Gentle IV fluids On IV ceftriaxone and azithromycin 06/25: Patient discharged on 5 more days of cefdinir. Continue incentive spirometry and PEP for 1 week. Home oxygen qualification test. Advised follow-up with net software architect as an outpatient. #Hx CAD -w/ no hx of intervention -management as above # Elevated creatinine -BUN 27 with a creatinine 1.71 -Unclear baseline but patient does only have 1 kidney -Patient received fluids as above -Avoid nephrotoxic agents 06/24: Creatinine increased from 1.71-1.96. Hold lisinopril. Patient has single kidney, had nephrectomy because of kidney cancer. # History of coronary artery disease -Patient listed as history of having a heart attack -Continue aspirin, Plavix, statin -Continue metoprolol #Chronic BPH with obstruction -Continue home medications # History of kidney cancer -Patient does have 1 kidney due to removal of the other from cancer around 20 to 25 years ago #Prostate cancer - Patient on abiraterone, prednisone, and Relugolix - Patient supposed to start radiation in April -Outpatient follow-up #Hypertension - Patient is hypertensive in the ED, continue home antihypertensives #? Adrenal adenoma - CTA with enlargement of the adrenal glands with mass involving left adrenal, possible adrenal adenoma -May need further contrast-enhanced MRI on a nonemergent basis #COPD -alb PRN -I/S #Tobacco use -Advise cessation -Nicotine replacement available if desired #DVT ppx: B/L SCDs Discharge medication reconciliation done. Discharge follow-up instructions completed. Discharge process discussed with the patient and all questions were answered to patient's satisfaction. Follow with PCP in 1 to 2 weeks Total time spent, exact 35 minutes on discharge meds reconciliation, examination, coordination of care with nurses and ancillary staff, review of imaging and blood test and discussion with the patient on follow-up instructions. Microbiology Past 72 Hours 06/23/25 20:55 Mucosa - Nasopharyngeal Respiratory Panel (PCR) - Final 06/23/25 14:22 Mucosa - Nose SARS-CoV-2, Influenza & RSV (PCR) - Final Laboratory Results 06/23/25 13:20: WBC 14.3 H, RBC 4.60, Hgb 13.7, Hct 41.0, MCV 89.1, MCH 29.8, MCHC 33.4, RDW Std Deviation 48.2 H, RDW Coeff of Brooke 14.7 H, Plt Count 289, MPV 10.9, Immature Gran % (Auto) 0.300, Neut % (Auto) 90.8 H, Lymph % (Auto) 5.0 L, Gentry % (Auto) 2.9, Eos % (Auto) 0.6, Baso % (Auto) 0.4, Absolute Neuts (auto) 13.0 H, Absolute Lymphs (auto) 0.72 L, Nucleated RBC % 0, PT 12.8, INR 0.9, APTT 25.1, Sodium 139, Potassium 3.9, Chloride 105, Carbon Dioxide 19.7 L, Anion Gap 14, BUN 27 H, Creatinine 1.71 H, Estim Creat Clear Calc 50.80, Est GFR (MDRD) Non-Af 44 L, BUN/Creatinine Ratio 15.8, Glucose 99, Calcium 9.1, Troponin T High Sens 19 06/23/25 14:29: Lactic Acid 1.5 06/23/25 15:58: Troponin T Hi Sens 2 Hr 27 H, TSH 1.300 06/23/25 17:54: Troponin T Hi Sens 4Hr 25 H 06/23/25 19:58: POC Glucose 112 H 06/23/25 21:20: Urine Color Straw, Urine Clarity Clear, Urine pH 6.0, Ur Specific Wynne 1.010, Urine Protein 100 H, Urine Glucose (UA) 1000 H, Urine Ketones Negative, Urine Occult Blood 10 H, Urine Nitrite Negative, Urine Bilirubin Negative, Urine Urobilinogen Normal, Ur Leukocyte Esterase Negative, Urine RBC 0 SEEN, Urine WBC 0 SEEN, Ur Squamous Epith Cells 0 SEEN, Urine Bacteria 0 SEEN, Urine Mucus 0 SEEN 06/24/25 04:18: WBC 13.9 H, RBC 4.16 L, Hgb 12.2 L, Hct 37.3 L, MCV 89.7, MCH 29.3, MCHC 32.7, RDW Std Deviation 49.1 H, RDW Coeff of Brooke 15.0 H, Plt Count 240, MPV 10.5, Immature Gran % (Auto) 0.400, Neut % (Auto) 88.1 H, Lymph % (Auto) 4.7 L, Gentry % (Auto) 6.0, Eos % (Auto) 0.6, Baso % (Auto) 0.2, Absolute Neuts (auto) 12.3 H, Absolute Lymphs (auto) 0.66 L, Nucleated RBC % 0, Sodium 140, Potassium 3.3, Chloride 108, Carbon Dioxide 18.8 L, Anion Gap 13, BUN 26 H, Creatinine 1.96 H, Estim Creat Clear Calc 42.95 L, Est GFR (MDRD) Non-Af 37 L, BUN/Creatinine Ratio 13.1, Glucose 106 H, Calcium 8.4, TSH 0.715 06/24/25 06:17: POC Glucose 101 06/24/25 11:51: POC Glucose 146 H Clinical Impression(s) from Imaging Studies Chest CTA 06/23/25 14:07 IMPRESSION: 1. Enlargement of the main pulmonary artery. Consider pulmonary arterial hypertension. No acute or chronic pulmonary embolus is seen. The distal segmental and subsegmental vessels are limited by respiratory motion artifact. 2. No acute aortic abnormality 3. Coronary artery disease. 4. Enlargement of the adrenal glands with mass involving the left adrenal gland. Adrenal adenoma is a consideration. On a nonemergent basis consider contrast-enhanced MRI for full characterization. Reading Location: [id number] Medications at Discharge Home Medications abiraterone 500 mg tablet 1,000 mg PO DAILY 06/23/25 amlodipine 10 mg tablet 10 mg PO DAILY 06/23/25 aspirin 81 mg tablet 81 mg PO DAILY 06/23/25 atorvastatin 80 mg tablet (Lipitor) 80 mg PO DAILY 06/23/25 clopidogrel 75 mg tablet (Plavix) 75 mg PO DAILY 06/23/25 empagliflozin 10 mg tablet (Jardiance) 10 mg PO DAILY 06/23/25 lisinopril 20 mg tablet 20 mg PO DAILY 06/23/25 nitroglycerin 0.4 mg sublingual tablet (Nitrostat) 0.4 mg sublingual Q5M PRN chest pain 06/23/25 oxybutynin chloride 5 mg tablet,extended release 24 hr 5 mg PO DAILY 06/23/25 prednisone 5 mg tablet 5 mg PO QDAY 06/23/25 relugolix 120 mg tablet (Orgovyx) 120 mg PO DAILY 06/23/25 tamsulosin 0.4 mg capsule 0.4 mg PO BID 06/23/25 cefdinir 300 mg capsule 300 mg PO BID 5 days #10 caps 06/25/25 dextromethorphan-guaifenesin ER 60 mg-1,200 mg tab,extend release,12hr 1 tab PO BID 6 days #12 tabs 06/25/25 metoprolol succinate 50 mg tablet,extended release 24 hr 50 mg PO DAILY 30 days #30 tabs 06/25/25 sennosides 8.6 mg-docusate sodium 50 mg tablet (Stimulant Laxative Plus) 2 tab PO BID PRN CONSTIPATION #0 tabs 06/25/25 Hospital Course Summary of Care Provided Hospital Course: Microbiology Past 72 Hours 06/23/25 21:20 Urine, Clean Catch Urine Culture - Preliminary Culture exhibits no growth. 06/23/25 20:55 Mucosa - Nasopharyngeal Respiratory Panel (PCR) - Final 06/23/25 14:22 Mucosa - Nose SARS-CoV-2, Influenza & RSV (PCR) - Final Laboratory Results 06/24/25 17:52: POC Glucose 169 H 06/25/25 06:11: POC Glucose 100 06/25/25 06:15: WBC 10.6, RBC 4.17 L, Hgb 12.2 L, Hct 37.4 L, MCV 89.7, MCH 29.3, MCHC 32.6, RDW Std Deviation 49.4 H, RDW Coeff of Brooke 14.9 H, Plt Count 218, MPV 10.9, Immature Gran % (Auto) 0.600, Neut % (Auto) 74.0 H, Lymph % (Auto) 8.7 L, Gentry % (Auto) 12.3 H, Eos % (Auto) 4.0, Baso % (Auto) 0.4, Absolute Neuts (auto) 7.9 H, Absolute Lymphs (auto) 0.93, Nucleated RBC % 0, Sodium 140, Potassium 3.5, Chloride 108, Carbon Dioxide 21.2, Anion Gap 10, BUN 20 H, Creatinine 1.64 H, Estim Creat Clear Calc 51.08, Est GFR (MDRD) Non-Af 46 L, BUN/Creatinine Ratio 12.0, Glucose 103 H, Calcium 8.7 Physical Exam Narrative Seen and examined. No acute issues. Patient wants to go home. He is feeling on normal baseline. Physical exam General: Alert, Oriented x3, Cooperative. BMI 31.3 kg/m? HEENT: Atraumatic, PERRLA, EOMI, Normocephalic. Oral: No Gingival or Mucosal Lesions/ Ulcerations Neck: Supple, No JVD, Negative Carotid Bruits Chest wall/Lungs: Air entry diminished in all lung cuevas. No crepitations or rhonchi. No hypoxia or tachypnea Cardiovascular: Regular rate and rhythm, Normal S1,S2, No M/G/R Abdomen: Bowel Sounds Present, Soft, Non Tender, Non-Distended : No dysuria. No renal angle tenderness. No suprapubic tenderness. Extremities: No edema, Capillary Refill Less than 3 Seconds Skin: No rashes, No breakdown Musculoskeletal: No Tenderness to Palpation of Joints or Extremities. ROM restricted. Neurological: Cranial nerves II-XII grossly intact, DTR 2+/4. No acute focal neurological deficit. Psych/Mental Status: Flat Weight / BMI Weight Weight: 209 lb 7.026 oz Body Mass Index (BMI) 30.9 ABG / Lab / Microbiology Data 06/25/25 06:15 06/25/25 06:15 Laboratory: Laboratory Results - last 24 hr 06/24/25 17:52: POC Glucose 169 H 06/25/25 06:11: POC Glucose 100 06/25/25 06:15: WBC 10.6, RBC 4.17 L, Hgb 12.2 L, Hct 37.4 L, MCV 89.7, MCH 29.3, MCHC 32.6, RDW Std Deviation 49.4 H, RDW Coeff of Brooke 14.9 H, Plt Count 218, MPV 10.9, Immature Gran % (Auto) 0.600, Neut % (Auto) 74.0 H, Lymph % (Auto) 8.7 L, Gentry % (Auto) 12.3 H, Eos % (Auto) 4.0, Baso % (Auto) 0.4, Absolute Neuts (auto) 7.9 H, Absolute Lymphs (auto) 0.93, Nucleated RBC % 0, Sodium 140, Potassium 3.5, Chloride 108, Carbon Dioxide 21.2, Anion Gap 10, BUN 20 H, Creatinine 1.64 H, Estim Creat Clear Calc 51.08, Est GFR (MDRD) Non-Af 46 L, BUN/Creatinine Ratio 12.0, Glucose 103 H, Calcium 8.7 Microbiology: Microbiology 06/23/25 21:20 Urine, Clean Catch Urine Culture - Preliminary Culture exhibits no growth. 06/23/25 20:55 Mucosa - Nasopharyngeal Respiratory Panel (PCR) - Final 06/23/25 14:22 Mucosa - Nose SARS-CoV-2, Influenza & RSV (PCR) - Final D/C Instructions Weight Bearing Status: Weight bearing as tolerated Call your doctor if you observe: Fever of 101 or Higher, Coldness, Increased Pain, Numbness or Tingling, Change in Color, Inability to urinate, Inability to have a bowel movement, Shortness of breath, Dizziness, Fainting spells, Swelling in the ankles, Chest pain, Prolonged hiccupping, Increased palpitations (irregular heartbeat) and Calf discomfort DC O2, CPAP, BIPAP Needs Home O2 Discharge instructions: No When: IN 2 WEEKS Meaningful Use Info Meaningful Use Meaningful Use Diagnoses (Choose all that apply): None applicable Discharge Plan Admission Admit Date/Time: 06/24/25 13:50 Primary Reason for Your Visit: Atypical chest pain. Possible interstitial pneumonia Attending Provider: Noam Das Primary Care Provider: LC BENTON Consulting Providers: Felicia Michael; Maya Engel Instructions Additional Instructions / Restrictions: Follow-up on agent contract clerk, Dr. Satish Warren Advised to follow with net software architect, referred by PCP Discharge Orders/Prescriptions Prescriptions: New dextromethorphan-guaifenesin 60-1,200 mg tablet extended release 12 hr 1 tab PO BID 6 Days Qty: 12 0RF metoprolol succinate 50 mg Tablet Extended Release 24 Hr 50 mg PO DAILY 30 Days Qty: 30 2RF sennosides-docusate sodium [Stimulant Laxative Plus] 8.6-50 mg Tablet 2 tab PO BID PRN (Reason: CONSTIPATION) Qty: 0 0RF Rx Instructions: OTC [id number] cefdinir 300 mg capsule 300 mg PO BID 5 Days Qty: 10 0RF Continued Orgovyx 120 mg tablet 120 mg PO DAILY oxybutynin chloride 5 mg tablet extended release 24hr 5 mg PO DAILY abiraterone 500 mg tablet 1,000 mg PO DAILY Rx Instructions: must be taken on empty stomach, at least 1 hr before or 2 hrs after a meal/food prednisone 5 mg tablet 5 mg PO QDAY tamsulosin 0.4 mg capsule 0.4 mg PO BID nitroglycerin [Nitrostat] 0.4 mg tablet, sublingual 0.4 mg sublingual Q5M PRN (Reason: chest pain) Rx Instructions: do not exceed 3 doses per episode amlodipine 10 mg tablet 10 mg PO DAILY atorvastatin [Lipitor] 80 mg tablet 80 mg PO DAILY clopidogrel [Plavix] 75 mg tablet 75 mg PO DAILY Jardiance 10 mg tablet 10 mg PO DAILY lisinopril 20 mg tablet 20 mg PO DAILY aspirin 81 mg tablet 81 mg PO DAILY Discontinued metoprolol succinate 25 mg tablet extended release 24 hr 25 mg PO DAILY Referrals / Follow Up: LC BENTON [Other] LC BENTON [Other] Disposition Disposition (needs filled in before D/C Order can be placed): Home, Self Care Charges/Coding Visit Charges Inpatient E&M: 47907 Disch Hosp >30min
[2025-06-25 12:14] VITALS: BP 152/86; PULSE 83; RESP 16; TEMP 36.6; O2SAT 95
== END 2025-06-25 13:46 | disposition home or self-care (01) | DRG 196 ==
LOC: ED 17:01 → PCU 18:08
PROVIDERS: Admitting Provider Internal Medicine; Emergency Provider Emergency Medicine; Visit Provider Internal Medicine
DX: J84.9 Interstitial pulmonary disease, unspecified (principal); J15.9 Unspecified bacterial pneumonia; J12.9 Viral pneumonia, unspecified; I24.89 Other forms of acute ischemic heart disease; I47.19 Other supraventricular tachycardia; J44.0 Chronic obstructive pulmonary disease with (acute) lower respiratory infection; N13.8 Other obstructive and reflux uropathy; E27.8 Other specified disorders of adrenal gland; C61 Malignant neoplasm of prostate; I10 Essential (primary) hypertension; I25.10 Atherosclerotic heart disease of native coronary artery without angina pectoris; F17.210 Nicotine dependence, cigarettes, uncomplicated; I25.2 Old myocardial infarction; D35.02 Benign neoplasm of left adrenal gland; Z11.52 Encounter for screening for COVID-19; N40.1 Benign prostatic hyperplasia with lower urinary tract symptoms; Z90.5 Acquired absence of kidney; Z85.528 Personal history of other malignant neoplasm of kidney
CPT/HCPCS: 36415; 71275; 80048; 81001; 82962; 83605; 84443; 84484; 85025; 85610; 85730; 87040; 87086; 87631; 87633; 93005; 93306; 94640; 99285; 99406; Q9967; A4216; J0696